=== PATIENT | male | born 1955 | race Caucasian/White ===

== ENCOUNTER 2018-04-26 14:06 | Emergency (ER) | payer SELFPAY ==
[~2018-04-26] VITALS: Ht 175.3 cm; Wt 88.5 kg
[2018-04-26 14:27] VITALS: BP 133/75
[2018-04-26 14:44] LABS: Basophils # (auto) 0 uL; Basophils % (auto) 0.3 % (0.0-2.0); Eosinophils # (auto) 0.1 uL; Eosinophils % (auto) 0.5 % (0.0-7.0); Hemoglobin 17.1 g/dL (13.5-17.5); Lymphocytes # (auto) 1.5 uL; Lymphocytes % (auto) 13.7 % (10.0-50.0); Mean Corpuscular Hemoglobin 30.9 pg (28.0-32.0); Mean Corpuscular Hgb Conc. 34.2 g/dL (32.0-36.0); Mean Corpuscular Volume 90.4 fL (80.0-100.0); Monocytes # (auto) 0.6 uL; Monocytes % (auto) 5.1 % (0.0-12.0); Neutrophils # (auto) 8.9 uL; Neutrophils % (auto) 80.4 % (37.0-80.0); Platelet Count (auto) 223 10^3/uL (140-450); Red Blood Cells 5.53 10^6/uL (4.5-5.90); Red Cell Distribution Width 13.6 % (11.8-14.3)
[2018-04-26] MEDS ORDERED: ASPirin 81 mg TAB PO ONE (14:45)
[2018-04-26] MEDS ORDERED: NITROGLYCERIN 0.4 MG SL TAB SL ONE (14:45)
[2018-04-26 14:59] LABS: Alanine Aminotransferase 45 U/L (16-61); Albumin 4.5 g/dL (3.4-5.0); Anion Gap 7 (5-15); Aspartate Aminotransferase 19 U/L (15-37); BUN/Creatinine Ratio 14.4; Blood Urea Nitrogen 14 mg/dL (7-18); Carbon Dioxide 26 mmol/L (21-32); Chloride 102 mmol/L (98-107); GFR African American 101 mL/min; GFR Non-African American 83 mL/min; Glucose 124 mg/dL (74-106); Potassium 3.8 mmol/L (3.5-5.1); Sodium 135 mmol/L (136-145)
[2018-04-26 15:03] LABS: Alkaline Phosphatase 92 U/L (45-117); Bilirubin, Total 0.6 mg/dL (0.2-1.0); Total Protein 8.5 g/dL (6.4-8.2)
== END 2018-04-26 17:27 | disposition left against medical advice (07) ==
LOC: ER 14:11
DX: R61 Generalized hyperhidrosis (principal); I24.9 Acute ischemic heart disease, unspecified; I10 Essential (primary) hypertension; E78.5 Hyperlipidemia, unspecified; R42 Dizziness and giddiness
CPT/HCPCS: 36415; 71046; 80053; 84484; 85025; 93005